=== PATIENT | female | born 1995 | race Caucasian/White ===

== ENCOUNTER 2018-06-17 20:46 | Inpatient (IN) | payer OTHER ==
[2018-06-17 21:40] LABS: HEMATOCRIT 36.3 % (36.0-47.0); HEMOGLOBIN 12.7 g/dl (12.0-15.5); MEAN CORPUSCULAR HEMOGLOBIN 32.2 pg (27.0-33.0); MEAN CORPUSCULAR VOLUME 92.1 fl (80.0-96.0); PLATELET COUNT, AUTOMATED 207 10^3/uL (150-450); RED BLOOD COUNT 3.94 10^6/uL (4.00-5.40); WHITE BLOOD COUNT 11.9 10^3/uL (4.0-10.0)
[2018-06-17] MEDS ORDERED: FENTANYL 2MCG/ML ROPIVACAINE 0.2% IN 0.9% NACL 100ML IVBAG As Ordered ONE (21:40)
[2018-06-17] MEDS ORDERED: OXYTOCIN 30 UNITS IN 0.9% NaCl 500ML IV BAG (J2590) As Ordered ONE (21:42)
[2018-06-17] MEDS ORDERED: LACTATED RINGER'S 1000 ML IV STA (21:54)
[2018-06-17] MEDS ORDERED: LR 1,000 ML IV SCH (21:54)
--- NOTE | 2018-06-17 22:08 | HPEPDOC ---
Obstetrical History & Physical General Date of Admission Jun 17, 2018 at 21:10 History of Present Illness 22 y/o at 40+1 with reg painful ctx's for several hours. No LOF/VB. Pos FM. Uncomplicated . Chief Complaint: Contractions, term Care Care: Good Care Dating Final EDC by: LMP, 1st trimester (US) Past Medical History Past Obstetrical History : Past Obstetrical History: Primgravida Past Medical History Medical History denies Surgical History: [place] teeth Family History Significant Family History: No pertinent family hx Social History Marital Status: Family situation: Spouse/partner home Psychosocial History: No pertinent psych hx * Smoker: non-smoker Alcohol: Denies Drugs: denies Abuse Violence Screening Have you been hit/kicked/slapp: No Have you been sexually assault: No Imunizations Tdap status: current Influenza Status: current Allergies Coded Allergies: No Known Allergies (Unverified , 06/17/18) Physical Examination Physical Examination GENERAL: Alert and oriented times three. ABDOMEN: Gravid and non-tender to touch. FETUS: Is vertex (VTX) by sterile vaginal examination (SVE), my check 30 min ago 8/100/0, my check just now C/C/+2/BBOW AROM'd with clr fluid EXTREMITIES: No edema. Laboratory Data 24H LABS Laboratory Tests 2 06/17/18 21:17: Serology Scanned Report Hepatitis B Testing 06/17/18 21:33: Nucleated Red Blood Cells % (auto) 0.0 CBC/BMP Laboratory Tests 06/17/18 21:33 Red Blood Count 3.94 L, Mean Corpuscular Volume 92.1, Mean Corpuscular Hemoglobin 32.2, Mean Corpuscular Hemoglobin Concent 35.0, Red Cell Distribution Width 13.0 Urine Culture: Contaminated Pertinent Laboratoy Data Blood Type: A+ RBC Antibody Screen: Negative HIV: Negative Hepatitis B: Negative Hepatitis C: Unknown Rapid Plasma Reagin: Nonreactive Rubella: Immune Varicella: Immune Chlamydia/Gonorrhea: Negative Group B Streptococcus: Negative Cystic Fibrosis: Negative Glucose Tolerance Test: 116 Anatomy Ultrasound Placenta Location: Anterior Normal Anatomy: Yes Placenta Previa: No Assessment Variability: Moderate Accelerations: Positive Decelerations: Variable Tocometer Contractions: Yes Frequency: regular Duration: greater than 60 seconds Strength: palpated as strong Assessment/Plan Assessment active labor Plan Admit and orient. 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 Diet: clears Group B Streptococcus (GBS) neg Labs and intravenous (IV) per unit protocol. Counseled on Pitocin and induction of labor (IOL). Lactated Ringers (LR): Bolus 1000 mL, then at 125 mL/hr. Anticipate normal spontaneous delivery () Sessions MD SESSIONS,JODI Kaufman MD Jun 17, 2018 22:08
[2018-06-17] MEDS ORDERED: OXYTOCIN DRIP 30 UNITS in APPROPRIATE DILUENT 1 EA IV SCH (23:26)
[2018-06-17] MEDS ORDERED: RHOGAM 300 MCG (1500 IU) INJ (J2790) IM SCH (23:30)
[2018-06-17] MEDS ORDERED: DIBUCAINE 1% OINTMENT 30GM TOP PRN (23:30)
[2018-06-17] MEDS ORDERED: METOCLOPRAMIDE INJ 10MG/2ML VIAL (J2765) IV PRN (23:30)
[2018-06-17] MEDS ORDERED: MEASLES,MUMPS,RUBELLA VACCINE INJ (MMR-II) (90707) SC SCH (23:30)
[2018-06-17] MEDS ORDERED: ACETAMINOPHEN TAB 650MG DOSE (2X325MG) PO PRN (23:30)
[2018-06-17] MEDS ORDERED: LIDOCAINE 1% MDV 20ML VIAL INFIL ONE (23:30)
--- NOTE | 2018-06-17 23:34 | DNPDOC ---
[facility] Delivery Note Delivery Note DATE OF DELIVERY: [id number] PREDELIVERY DIAGNOSIS: 40 1/7 weeks' gestation and labor. POST DELIVERY DIAGNOSIS: Delivered. PROCEDURE: Spontaneous vaginal delivery MENDER HAND: Dr. Reece ANESTHESIA: natural ESTIMATED BLOOD LOSS: 200 mL. FINDINGS: 7 pound 2 ounce male infant, Score 8/10 nuchal cord times 1, reduced DELIVERY SUMMARY: Called to room, excellent effort, . No delay of the vtx, BARRERA to LOT. Nuchal cord reduced, no delay of either shoulder. Vigorous male to abd. Cord C/C by FOB. Cord blood. Plac intact, fundus firm, pit going 999. 3 post vag wall lacs all repaired with 3-0 vicryl after 1% lidocaine bath, 20 cc's total. Per and cx intact. Good cosmesis and hemostasis. Brennen REECE,JODI Kaufman MD Jun 17, 2018 23:34
[2018-06-18 01:00] VITALS: BP 105/65
[2018-06-18 06:00] VITALS: BP 132/73
[2018-06-18] MEDS: IBUPROFEN 800 MG TAB PO PRN ×2 (06:14→17:08)
--- NOTE | 2018-06-18 08:14 | IPNPDOC ---
Text Note Date of Service The patient was seen on 06/18/18. NOTE PPD1 States feeling well, pain controlled with prescribed meds. Baby bonding and feeding well. No heavy VB. Lochia slowing. Ambulatory. Tolerating PO without issues. Voiding spont. No CP/LP/SOB. VSSAF NAD A&O LE no C/C/E Ut at U-2, firm a/p: Doing well. Cont routine care. Sessions VS,Alan, I+O VSAlan I+O Laboratory Tests 06/17/18 21:33 Red Blood Count 3.94 L, Mean Corpuscular Volume 92.1, Mean Corpuscular Hemoglobin 32.2, Mean Corpuscular Hemoglobin Concent 35.0, Red Cell Distribution Width 13.0 Vital Signs Date Time Temp Pulse Resp B/P (MAP) Pulse Ox O2 Delivery O2 Flow Rate FiO2 06/18/18 06:00 98.2 76 17 132/73 (92) I&O- Last 24 Hours up to 6 AM 06/18/18 06:00 Output Total 300 ml Balance -300 ml SESSIONS,JODI Kaufman MD Jun 18, 2018 08:14
[2018-06-18] MEDS: DOCUSATE SODIUM 100 MG CAP PO SCH ×2 (09:22→21:06)
[2018-06-18] MEDS: PRENATAL VITAMINS CHEWABLE TABLET PO SCH (09:22)
[2018-06-18 18:09] VITALS: BP 108/54
--- NOTE | 2018-06-19 05:45 | NUR ---
[facility] Progress Note Date of Service The patient was seen on 06/19/18. NOTE PPD2 Loulou reports feeling well, pain controlled with prescribed meds. Baby bonding and feeding well. No heavy VB. Lochia slowing. Ambulatory. Toleratin g PO without issues. Voiding spont. No CP/LP/SOB. Strong desire for dc to home today. VSS/AF NAD A&O LE no C/C/E Ut at U-2, firm Lochia scant rubra Breasts-nipples intact; soft Intact Perineum; vaginal mucosa well approximated and no edema a/p: Loulou is a 22 y/o G1 now P1001 s/p vaginal delivery at 2247 on Jun. Nml course. Reviewed dc precautions to include return precautions/war nancy signs. D/c meds given. Will dc to home today and/or transition to boarder status pending dc of nbn. She has been advised to make f/u appt w/ [facility] for 6 week assessment. All questions/concerns answered.
[2018-06-19 06:00] VITALS: BP 107/58
[2018-06-19] MEDS ORDERED: NUPE1OIN2 TOP ×2 (08:00→08:33)
[2018-06-19] MEDS ORDERED: PRENTAB9 PO ×2 (08:00→08:33)
[2018-06-19] MEDS ORDERED: MAPA500T2 PO ×2 (08:00→08:33)
[2018-06-19] MEDS ORDERED: IBUP-1114 PO ×2 (08:00→08:33)
[2018-06-19] MEDS: DOCUSATE SODIUM 100 MG CAP PO SCH (08:30)
[2018-06-19] MEDS: PRENATAL VITAMINS CHEWABLE TABLET PO SCH (08:30)
== END 2018-06-19 12:30 | disposition home or self-care (01) | DRG 807 ==
LOC: M LDO 20:46 → M LDI 21:10 → M OBS 06-18 01:05
PROVIDERS: ADMIT Obstetrics & Gynecology; ATTEND Obstetrics & Gynecology
PROC: 10E0XZZ Delivery of Products of Conception, External Approach (ICD-10-PCS; principal; 2018-06-17)
PROC: 10907ZC Drainage of Amniotic Fluid, Therapeutic from Products of Conception, Via Natural or Artificial Opening (ICD-10-PCS; 2018-06-17)
PROC: 0HQ9XZZ Repair Perineum Skin, External Approach (ICD-10-PCS; 2018-06-17)
DX: O48.0 Post-term pregnancy (principal); Z37.0 Single live birth; Z3A.40 40 weeks gestation of pregnancy; O70.0 First degree perineal laceration during delivery